=== PATIENT | male | born 1965 | race Caucasian/White ===

== ENCOUNTER 2018-10-12 12:37 | Emergency (ER) | payer MEDICAID ==
[~2018-10-12] VITALS: Ht 175.3 cm; Wt 74.8 kg
[~2018-10-12 12:37] MED LIST: AMLO10TA7 PO; ASPI-1152 PO; ATOR40TA PO; BENA20TA9 PO; DOXA2TAB PO; MECL-102 PO; METO25TA6 PO; NITR0.4T SL
[2018-10-12] MEDS ORDERED: ACETAMINOPHEN ES 500 MG TABLET ONE (12:58)
[2018-10-12] MEDS ORDERED: ACETAMINOPHEN 325 MG TABLET PO ONE (13:00)
--- NOTE | 2018-10-12 14:29 | NUR ---
PT'S WOUNDS WERE CLEANED AND BANDAGED WITH KERLEX. Patient discharged to home in stable condition. Written and verbal after care instructions given. Patient verbalizes understanding of instruction. PT REC'D A TAXI VOUCHER AND IS AWAITING P/U.
--- NOTE | 2018-10-12 14:40 | NUR ---
PT AMBULATED TO THE LOBBY TO WAIT FOR THE TAXI.
--- NOTE | 2018-10-12 14:40 | NUR ---
Edwin jang in [facility] - 10/12/18 at 1440 by YAHIR PAT AMBULATED TO THE LOBBY TO WAIT FOR THE TAXI.
[2018-10-12 14:43] VITALS: BP 128/85
== END 2018-10-12 15:01 | disposition home or self-care (01) ==
LOC: ER 12:45
DX: S80.212A Abrasion, left knee, initial encounter (principal); S50.311A Abrasion of right elbow, initial encounter; S60.811A Abrasion of right wrist, initial encounter; I10 Essential (primary) hypertension; J45.909 Unspecified asthma, uncomplicated; F10.10 Alcohol abuse, uncomplicated; I25.2 Old myocardial infarction; Y90.9 Presence of alcohol in blood, level not specified; Z90.89 Acquired absence of other organs; Z95.5 Presence of coronary angioplasty implant and graft; Z79.82 Long term (current) use of aspirin; W18.39XA Other fall on same level, initial encounter; Y93.01 Activity, walking, marching and hiking; Y92.89 Other specified places as the place of occurrence of the external cause; Y99.8 Other external cause status
CPT/HCPCS: 73080; 73110; 73564; 99283; A6403